=== PATIENT | female | born 1960 | race Hispanic/Latino ===

== ENCOUNTER 2016-11-12 04:27 | Inpatient (IN) | payer MEDICARE ==
[2016-11-12] MEDS ORDERED: LASIX IV ONE (04:35)
[2016-11-12] MEDS ORDERED: DUONEB 0.5 MG-3 MG/3 ML SOLN IH ONE (04:35)
[2016-11-12] MEDS ORDERED: BABY ASPIRIN PO ONE (04:38)
--- NOTE | 2016-11-12 04:38 | Emergency Department Report ---
HPI - General Time Seen by Provider: 11/12/16 04:27 - HPI HPI: The patient is a 55-year-old female who presents for evaluation of dyspnea. The patient has a history of COPD and CHF. The patient reports constant and severe dyspnea for the past one day, exacerbated with exertion, worsened late tonight. The patient deneis fever, chest pain, syncope, hemoptysis, vomiting, unilateral leg swelling, chills, night sweats. ED Past Medical Hx - Past Medical History Hx Hypertension: Yes (Diastolic HF ) Hx Heart Attack/AMI: No Hx Congestive Heart Failure: Yes Hx Diabetes: No Hx Deep Vein Thrombosis: (Unk) Hx Pulmonary Embolism: No Hx Renal Disease: Yes (Acute Renal Failure Resolved; had to get HD for 3 wks) Hx Sickle Cell Disease: No Hx Kidney Stones: No Hx Psychiatric Treatment: Yes (bipolar d/o) Hx Asthma: No Hx COPD: Yes Hx Tuberculosis: No Hx HIV: No Additional medical history: Patient takes multiple psychiatric medication. She also presents with an empty bottle of Fioricet. Additionally she has bottle of methocarbamol and soma. HX of lung CA - Surgical History Hx Coronary Stent: No Hx Open Heart Surgery: No Hx Pacemaker: No Hx Internal Defibrillator: No Hx Cholecystectomy: No Hx Appendectomy: No Hx Breast Surgery: No Additional Surgical History: tonsillectomy - Social History Smoking Status: Former Smoker - Medications Home Medications: Home Medications Medication Instructions Recorded Confirmed Last Taken Type AtorvaSTATin [Lipitor] 40 mg PO QDAY 06/12/16 11/12/16 11/11/16 History Carvedilol [Coreg] 6.25 mg PO BID 11/12/16 11/12/16 Unknown History Clopidogrel [Plavix] 75 mg PO QDAY 11/12/16 11/12/16 Unknown History Cyclobenzaprine [Flexeril] 10 mg PO 4XD PRN 11/12/16 11/12/16 Unknown History Ipratropium/Albuterol Sulfate 1 spray IH QID 11/12/16 11/12/16 Unknown History [Combivent Respimat] QUEtiapine [SEROquel] 200 mg PO QPM 11/12/16 11/12/16 Unknown History metroNIDAZOLE [Flagyl] 500 mg PO TID 11/12/16 11/12/16 Unknown History predniSONE [Deltasone] 10 mg PO QDAY 11/12/16 11/12/16 Unknown History traMADol [Ultram] 50 mg PO TID PRN 11/12/16 11/12/16 Unknown History ED Review of Systems ROS: Stated complaint: MANUEL Other details as noted in HPI Constitutional: denies: fever ENT: denies: throat or neck pain Respiratory: reports shortness of breath Cardiovascular: denies: chest pain Endocrine: denies unexplained weight loss or gain Gastrointestinal: denies: abdominal pain, nausea Genitourinary: denies: dysuria Musculoskeletal: denies: leg swelling Skin: denies: rash Neurological: denies: headache Hematological/Lymphatic: denies: easy bleeding or easy bruising Psych: denies sadness or hopelessness Physical Exam - Physical Exam Physical Exam: General: well-nourished, well-developed Head: Normocephalic, atraumatic Eyes: normal sclera ENT: Mucous membranes are pink and moist Neck: trachea midline, neck supple, No neck stiffness, no cervical adenopathy Respiratory: Diminished breath sounds and wheezing present throughout lung lakhani, crackles present to bibasilar lung lakhani as well, costal retractions present, patient in mild respiratory distress Cardio: S1 and S2 present, no murmurs, rubs, gallops, capillary refill is brisk Abdomen: Normoactive bowel sounds, soft abdomen, no rigidity, no guarding or rebound tenderness Musc: No pitting edema Skin: No rash Neuro: no facial drooping, normal speech Psych: Normal affect ED Medical Decision Making - Lab Data Result diagrams: 11/12/16 04:44 11/12/16 04:44 - Medical Decision Making The patient was seen and examined by myself. The patient received IV Solu- Medrol, IV magnesium, and an albuterol breathing treatment be EMS prior to arrival. The patient is placed on a stained glass joiner and continuous pulse ox. On initial evaluation, the patient was found to be in mild respiratory distress. The patient is placed on BiPAP and administered a duoneb breathing treatment. Evaluation orders were placed. Multiple bedside assessments were performed to evaluate patient responsiveness to bipap. Lab results reveal elevated BNP 1700, hyperglycemia 200, leukocytosis, WBC 15, and elevated PCO2 on ABG. X-ray of the chest exhibits right lower pleural effusion and mild cardiomegaly. The patient is given IV Lasix for treatment of CHF exacerbation. The on-call hospitalist service was contacted. They agreed to admit the patient for further treatment and close monitoring. The ED admit order was placed. The patient was admitted in guarded condition. Critical Care Time: Yes Critical care time in (mins) excluding proc time.: 35 Critical care attestation.: Due to the critical nature of this patients presentation, which necessitated multiple bedside assessments, manipulation and supportive measures to prevent further life threatening deterioration, I would like to bill for a total of 35 minutes of critical care time. This was exclusive of any separately billable procedures. Critical Care Time: 35 ED Disposition Clinical Impression: Acute on chronic systolic CHF (congestive heart failure), Acute respiratory failure with hypercapnia, Acute hyperglycemia Disposition: OP ADMITTED IP TO THIS HOSP Is pt being admited?: Yes Does the pt Need Aspirin: Yes Condition: Critical Time of Disposition: 04:37
[2016-11-12 04:59] LABS: Basophils % (Auto) 0.6 % (0.0-1.8); Eosinophils % (Auto) 0.3 % (0.0-4.3); Mean Corpuscular HGB Conc 31 % (30-34); Mean Corpuscular Hemoglobin 27 pg (28-32); Mean Corpuscular Volume 87 fl (79-97); Platelet Count 285 K/mm3 (140-440); Red Blood Count 4.57 M/mm3 (3.65-5.03); Red Cell Distribution Width 17.5 % (13.2-15.2); White Blood Count 15.5 K/mm3 (4.5-11.0)
[2016-11-12 05:01] LABS: Hematocrit 39.6 % (30.3-42.9); Hemoglobin 12.2 gm/dl (10.1-14.3)
[2016-11-12 05:20] LABS: BUN/Creatinine Ratio 15.45; Potassium 3.6 mmol/L (3.6-5.0)
[2016-11-12 05:49] LABS: ISTAT Base Excess 3; ISTAT HCO3 28.1; ISTAT PCO2 49.5 (35-45); ISTAT PH 7.362 (7.35-7.45); ISTAT PO2 86 (80-105); ISTAT SO2 96; ISTAT TCO2 30
--- NOTE | 2016-11-12 07:35 | History and Physical Report ---
History of Present Illness Date of examination: 11/12/16 Date of admission: 11/12/16 Chief complaint: worsening shortness of breath for the last 2 days History of present illness: Very pleasant 55-year-old female patient with significant past medical history of diastolic congestive heart failure COPD home oxygen dependent , presented to the emergency room with worsening shortness of breath of 2 days' duration, mild cough productive of whitish sputum denies hemoptysis patient denies any chest pain, patient was noted to be hypoxemic and tachypneic and tachycardic in the emergency room, requiring BiPAP Initially patient refuses to be admitted and wanted to sign out AMA however after explaining patient's condition treatment and discharge plan patient obliged to stay in the hospital for further evaluation and management of her symptoms First set of cardiac enzymes negative, Chest x-ray consistent with right lower lobe pneumonia and segmental left lower lobe atelectasis Denies nausea vomiting or abdominal pain Denies headache dizziness or weakness or numbness Past History Past Medical History: CAD, GERD, heart failure (diastolic congestive heart failure), hypertension, hyperlipidemia Past Surgical History: PTCA Social history: lives with family, smoking, alcohol abuse (additional), full code. denies: prescription drug abuse, IV drug use Family history: hypertension Medications and Allergies Allergies Allergy/AdvReac Type Severity Reaction Status Date / Time No Known Allergies Allergy Verified 08/23/16 10:20 Home Medications Medication Instructions Recorded Confirmed Last Taken Type AtorvaSTATin [Lipitor] 40 mg PO QDAY 06/12/16 11/12/16 11/11/16 History Carvedilol [Coreg] 6.25 mg PO BID 11/12/16 11/12/16 Unknown History Clopidogrel [Plavix] 75 mg PO QDAY 11/12/16 11/12/16 Unknown History Cyclobenzaprine [Flexeril 10 MG 10 mg PO 4XD PRN 11/12/16 11/12/16 Unknown History TAB] Ipratropium/Albuterol Sulfate 1 spray IH QID 11/12/16 11/12/16 Unknown History [Combivent Respimat] QUEtiapine [SEROquel] 200 mg PO QPM 11/12/16 11/12/16 Unknown History traMADol [Ultram 50 MG tab] 50 mg PO TID PRN 11/12/16 11/12/16 Unknown History Azithromycin [Zithromax Z-GEORGIA] 0 mg PO DAILY #1 tab 11/13/16 Unknown Rx Nicotine [Habitrol] 14 mg TD DAILY #30 patch 11/13/16 Unknown Rx Prednisone [predniSONE 10 mg 10 mg PO .TAPER #1 tab.ds.pk 11/13/16 Unknown Rx (6-Day Pack, 21 Tabs)] oxyCODONE /ACETAMINOPHEN [Percocet 1 tab PO QHS PRN #7 tablet 11/13/16 Unknown Rx 5/325] Review of Systems Constitutional: no weight loss, no weight gain, no fever, no chills Ears, nose, mouth and throat: no nasal congestion, no nasal discharge Cardiovascular: shortness of breath, no chest pain Respiratory: shortness of breath, no cough with sputum, no hemoptysis Gastrointestinal: loss of appetite, no nausea, no vomiting Genitourinary Female: no pelvic pain, no dysuria Musculoskeletal: no myalgias, no arthritis Integumentary: no rash, no lesions Neurological: no paralysis, no weakness, no seizures, no syncope Psychiatric: no anxiety, no depression Endocrine: no cold intolerance, no heat intolerance, no polydipsia, no polyuria Hematologic/Lymphatic: no easy bruising, no easy bleeding Allergic/Immunologic: no urticaria, no allergic rhinitis Exam - Constitutional Vitals: Temp Pulse Resp BP Pulse Ox 81 18 142/90 100 11/12/16 05:53 11/12/16 06:07 11/12/16 04:35 11/12/16 06:07 General appearance: Present: mild distress, well-nourished - EENT Eyes: Present: PERRL, EOM intact - Neck Neck: Present: supple, normal ROM - Respiratory Respiratory effort: normal Respiratory: bilateral: diminished (right more than left), rales, wheezing, negative: rhonchi - Cardiovascular Rhythm: regular Heart Sounds: Present: S1 & S2 - Extremities Extremities: no ischemia, pulses intact, pulses symmetrical - Abdominal General gastrointestinal: Present: soft, non-tender, non-distended, normal bowel sounds - Integumentary Integumentary: Present: clear, warm - Musculoskeletal Musculoskeletal: strength equal bilaterally, generalized weakness - Psychiatric Psychiatric: appropriate mood/affect, cooperative - Neurologic Neurologic: CNII-XII intact, moves all extremities Results - Labs CBC & Chem 7: 11/13/16 05:21 11/13/16 13:23 Labs: Abnormal lab results 11/12/16 11/12/16 11/12/16 Range/Units 04:44 04:44 05:33 WBC 15.5 H (4.5-11.0) K/mm3 MCH 27 L (28-32) pg RDW 17.5 H (13.2-15.2) % Seg Neutrophils % 75.3 H (40.0-70.0) % Seg Neutrophils # 11.7 H (1.8-7.7) K/mm3 POC ABG pCO2 49.5 H (35-45) Sodium 162 H* (137-145) mmol/L Chloride 120.0 H (98-107) mmol/L Glucose 201 H (65-100) mg/dL NT-Pro-B Natriuret Pep 1717 H (0-900) pg/mL Assessment and Plan - Patient Problems (1) Acute respiratory failure with hypercapnia Current Visit: Yes Status: Acute Plan to address problem: Multifactorial , secondary to acute on chronic diastolic congestive heart failure, as well as acute exacerbation of COPD Continue supportive care, I tried to O2 sats more than 90% BiPAP as needed, patient already has home oxygen (2) Acute on chronic diastolic CHF (congestive heart failure) Current Visit: No Status: Acute Plan to address problem: Gentle diuresis, oxygen, input-output monitoring Cardiology evaluation if needed Patient had severe systolic congestive heart failure in 2013 with ejection fraction of 15-20% in the records However in June 2016 echocardiogram revealed ejection fraction of 55-60% Consider cardiology evaluation if needed (3) Acute exacerbation of COPD with asthma Current Visit: Yes Status: Acute Plan to address problem: Oxygen, nebulizers, IV steroids, IV antibiotics, inhalation steroids and supportive care (4) Leukocytosis Current Visit: No Status: Acute Plan to address problem: Due to sepsis secondary to pneumonia Closely monitor (5) Right lower lobe pneumonia Current Visit: Yes Status: Acute Qualifiers: Pneumonia type: due to Pneumococcus Qualified Code(s): J13 - Pneumonia due to Streptococcus pneumoniae Plan to address problem: Possible community-acquired pneumonia Manage with Rocephin and Zithromax, blood cultures, supportive care for (6) DVT prophylaxis Current Visit: No Status: Acute Plan to address problem: Acute prophylaxis with Lovenox --DC planning to case management Closely monitor the patient and adjust management as needed Possible discharge in 1-2 days if stable
--- NOTE | 2016-11-12 07:56 | Admit Criteria Form ---
Admission Criteria Documentation: HEART FAILURE: COMMON COMPLICATIONS Clinical Indications for Inpatient Care (Place 'X' for any and all applicable criteria): Ongoing inpatient care may be indicated for heart failure with ANY ONE of the following (1)(2)(3)(4)(5): [ ]I. Ongoing need for care for primary condition requiring frequent therapy adjustments because of changes in cardiac function (eg, drug dosage changes for drugs that are renally metabolized) [ ]II. New-onset heart failure [ ]III. Heart failure with decreased urine output not responsive to attempts to optimize volume status [ ]IV. Acute cardiac ischemia causing or associated with failure [ X]V. Complications of heart failure, including ANY ONE of the following: [ ]a) Pericardial effusion [ ]b) Symptomatic pleural effusion [ ]c) O2 saturation <90% or PO2 < 60 mm Hg (8.0 kPa) on room air or require baseline supplemental O2 [ ]d) Tachypnea [X ]e) Dyspnea [ ]f) Syncope [ ]g) Change in mental status [ ]h) Acute renal insufficiency that is severe (reduction of more than 50% in estimated glomerular filtration rate from baseline) or progressive reduction of more than 25% in estimated glomerular filtration rate from baseline, with creatinine continuing to rise) [ ]i) Hemodynamic instability [ ]j) Anasarca [X ]k) Clinically significant metabolic abnormalities due to heart failure (eg, new-onset metabolic acidosis) Extended stay beyond goal length of stay for primary condition may be needed until ALL of the following are present(1)(3): [ ]a) Stable and effective diuretic regimen established (or patient on stable dialysis regimen if in chronic renal failure) [ ]b) Breathing comfortably at rest [ ]c) Saturation of arterial oxygen greater than 90% or at acceptable baseline [ ]d) Pulmonary edema absent or improved [ ]e) Hemodynamic stability [ ]f) Volume status acceptable on oral medication [ ]g) Peripheral or sacral edema absent or improved [ ]h) Renal function stable and manageable at a lower level of care [ ]i) Complications (eg, pleural effusion) resolved or manageable at a lower level of care [ ]j) Patient or caregiver has received written discharge instructions or educational material addressing activity level, diet, discharge medications, follow-up appointment, weight monitoring, and what to do if symptoms worsen The original [employer] content created by [employer] has been revised. The portions of the content which have been revised are identified through the use of italic text or in bold, and [facility] has neither reviewed nor approved the modified material.All other unmodified content is copyright [facility]. Please see references footnoted in the original [facility] edition 2016 Admission Criteria Met: Yes
[2016-11-12] MEDS ORDERED: PERCOCET 5/325 PO PRN (07:58)
[2016-11-12] MEDS ORDERED: AMBIEN PO PRN (07:58)
[2016-11-12] MEDS: MORPHINE IV PRN ×3 (08:00→21:00)
--- NOTE | 2016-11-12 09:18 | XRay Report ---
Single view chest: Compared to 07/28/16. History: Dyspnea. Findings: Cardiomegaly. Trachea is midline. Ill-defined linear densities in the right lower lobe. Normal CP angles. Impression: Right lower lobe pneumonia/segmental atelectasis.
[2016-11-12] MEDS ORDERED: PERCOCET 5/325 ONE (09:30)
[2016-11-12] MEDS: DUONEB 0.5 MG-3 MG/3 ML SOLN IH SCH ×3 (09:58→21:08)
[2016-11-12] MEDS: LOVENOX SUB-Q SCH (11:07)
[2016-11-12] MEDS: LASIX IV SCH (11:07)
[2016-11-12] MEDS: PLAVIX PO SCH (11:08)
[2016-11-12] MEDS: COREG PO SCH ×2 (11:08→21:00)
[2016-11-12] MEDS: ULTRAM PO PRN (11:13)
[2016-11-12] MEDS: ZITHROMAX 500 MG in NACL 0.9% 250ML 250 ML IV SCH (12:55)
[2016-11-13] MEDS: DUONEB 0.5 MG-3 MG/3 ML SOLN IH SCH ×3 (03:17→17:59)
[2016-11-13 06:05] LABS: Basophils % (Auto) 0.2 % (0.0-1.8); Eosinophils % (Auto) 0.1 % (0.0-4.3); Hematocrit 37.7 % (30.3-42.9); Hemoglobin 11.8 gm/dl (10.1-14.3); Mean Corpuscular HGB Conc 31 % (30-34); Mean Corpuscular Hemoglobin 27 pg (28-32); Mean Corpuscular Volume 85 fl (79-97); Platelet Count 255 K/mm3 (140-440); Red Blood Count 4.43 M/mm3 (3.65-5.03); Red Cell Distribution Width 17.9 % (13.2-15.2); White Blood Count 10.8 K/mm3 (4.5-11.0)
[2016-11-13 06:06] LABS: BUN/Creatinine Ratio 18.75; Blood Urea Nitrogen 15 mg/dL (7-17); Calcium 9.3 mg/dL (8.4-10.2); Carbon Dioxide 28 mmol/L (22-30); Chloride 103.9 mmol/L (98-107); Glucose 96 mg/dL (65-100); Sodium 145 mmol/L (137-145)
[2016-11-13 06:26] LABS: Anion Gap 16 mmol/L
[2016-11-13 06:28] LABS: Potassium 2.9 mmol/L (3.6-5.0)
[2016-11-13] MEDS ORDERED: K-DUR PO ONE ×2 (06:34→10:00)
[2016-11-13] MEDS: MORPHINE IV PRN ×2 (06:53→14:07)
[2016-11-13 08:10] VITALS: BP 156/90
[2016-11-13] MEDS ORDERED: ROCEPHIN/NS 1 GM/50 ML 50 ML IV SCH (10:00)
[2016-11-13] MEDS: COREG PO SCH (10:55)
[2016-11-13] MEDS: LASIX IV SCH (10:56)
[2016-11-13] MEDS: LOVENOX SUB-Q SCH (10:56)
[2016-11-13] MEDS: PLAVIX PO SCH (10:56)
[2016-11-13] MEDS: ULTRAM PO PRN (11:08)
[2016-11-13] MEDS: ZITHROMAX 500 MG in NACL 0.9% 250ML 250 ML IV SCH (12:18)
--- NOTE | 2016-11-13 13:35 | Discharge Summary ---
Providers - Providers Date of Admission: 11/12/16 07:45 Date of discharge: 11/13/16 Attending physician: FLOR BURRIS Primary care physician: [facility] Hospitalization Reason for admission: worsening shortness of breath/acute respiratory failure Condition: Fair Pertinent studies: Chest x-ray; right lower lobe pneumonia segmental atelectasis Hospital course: Very pleasant 55-year-old female patient with significant past medical history of COPD home oxygen dependent chronic diastolic congestive heart failure hypertension dyslipidemia, was admitted through emergency room with hypoxic hypercapnic respiratory failure requiring BiPAP Initial workup is consistent with acute on chronic diastolic congestive heart failure and acute exacerbation of COPD, chest x-ray revealed right lower lobe pneumonia Patient was managed with IV antibiotics oxygen and nebulizers IV steroids inhalation steroids, patient's blood cultures are negative to date Patient has history of ongoing tobacco use, smoking cessation counseling done patient strongly advised nicotine patch Today she is comfortable in bed alert awake oriented 3 not in acute distress, vital signs stable physical examination done by me prior to discharge is unremarkable as detailed below, hypokalemia was corrected with replacement therapy Medical records reviewed, DC planning discussed with the patient and family members at the bedside as well as the nurse Smoking cessation counseling done advised nicotine patch, I spent 10 minutes counseling the patient Disposition: DISCHARGED TO HOME OR SELFCARE Time spent for discharge: 33min - Discharge Diagnoses (1) Acute respiratory failure with hypercapnia Status: Acute (2) Acute on chronic diastolic CHF (congestive heart failure) Status: Acute (3) Acute exacerbation of COPD with asthma Status: Acute (4) Leukocytosis Status: Acute Comment: secondary to steroid therapy, no fever, no signs of systemic infection. (5) Right lower lobe pneumonia Status: Acute Qualifiers: Pneumonia type: due to Pneumococcus Qualified Code(s): J13 - Pneumonia due to Streptococcus pneumoniae (6) Tobacco use Status: Acute Core Measure Documentation - Palliative Care Palliative Care/ Comfort Measures: Not Applicable - Core Measures Any of the following diagnoses?: none Exam - Constitutional Vitals: Temp Pulse Resp BP Pulse Ox 98 F 77 19 156/90 96 11/13/16 08:09 11/13/16 10:25 11/13/16 10:25 11/13/16 10:55 11/13/16 10:15 General appearance: Present: no acute distress, well-nourished - EENT Eyes: Present: PERRL, EOM intact - Neck Neck: Present: supple, normal ROM - Respiratory Respiratory effort: normal Respiratory: bilateral: diminished, negative: rales, rhonchi, wheezing - Cardiovascular Rhythm: regular Heart Sounds: Present: S1 & S2 - Extremities Extremities: no ischemia, pulses intact, pulses symmetrical Peripheral Pulses: within normal limits - Abdominal General gastrointestinal: Present: soft, non-tender, non-distended, normal bowel sounds - Integumentary Integumentary: Present: clear, warm - Musculoskeletal Musculoskeletal: strength equal bilaterally, generalized weakness - Psychiatric Psychiatric: appropriate mood/affect, cooperative - Neurologic Neurologic: CNII-XII intact, moves all extremities Plan Activity: no restrictions Diet: low salt Special Instructions: smoking cessation Additional Instructions: Continue home oxygen as needed. Smoking cessation counseling done advised nicotine patch Follow up with: PRIMARY CARE, [Primary Care Provider] - 3-5 Days Prescriptions: Azithromycin [Zithromax Z-GEORGIA] 0 mg PO DAILY #1 tab Nicotine [Habitrol] 14 mg TD DAILY #30 patch Prednisone [predniSONE 10 mg (6-Day Pack, 21 Tabs)] 10 mg PO .TAPER #1 tab.ds.pk oxyCODONE /ACETAMINOPHEN [Percocet 5/325] 1 tab PO QHS PRN #7 tablet PRN Reason: Pain
== END 2016-11-13 16:18 | disposition home or self-care (01) | DRG 291 ==
LOC: ED 04:27 → 3A 07:45
PROVIDERS: ADMIT Internal Medicine; ATTEND Internal Medicine
DX: I11.0 Hypertensive heart disease with heart failure (principal); J13 Pneumonia due to Streptococcus pneumoniae; J96.02 Acute respiratory failure with hypercapnia; J96.01 Acute respiratory failure with hypoxia; J44.1 Chronic obstructive pulmonary disease with (acute) exacerbation; J44.0 Chronic obstructive pulmonary disease with (acute) lower respiratory infection; I50.33 Acute on chronic diastolic (congestive) heart failure; J44.9 Chronic obstructive pulmonary disease, unspecified; F31.9 Bipolar disorder, unspecified; K21.9 Gastro-esophageal reflux disease without esophagitis; E78.5 Hyperlipidemia, unspecified; I25.10 Atherosclerotic heart disease of native coronary artery without angina pectoris; J45.909 Unspecified asthma, uncomplicated; E87.6 Hypokalemia; Z98.890 Other specified postprocedural states; Z79.899 Other long term (current) drug therapy; Z87.891 Personal history of nicotine dependence; Z99.81 Dependence on supplemental oxygen; Z82.49 Family history of ischemic heart disease and other diseases of the circulatory system; Z79.2 Long term (current) use of antibiotics; Z71.6 Tobacco abuse counseling
CPT/HCPCS: 36415; 71010; 80048; 82140; 82803; 83880; 84132; 84295; 85025; 87040; 93005; 93010; 94640; 94760; 99291; 99406; A9270-GY; J0456; J0696; J1650; J1940; J2270; J7050

== ENCOUNTER 2016-11-14 02:27 | Inpatient (IN) | payer MEDICARE ==
[2016-11-14] MEDS ORDERED: DUONEB 0.5 MG-3 MG/3 ML SOLN IH ONE ×2 (02:39→02:44)
[2016-11-14] MEDS ORDERED: MAGNESIUM SULFATE 2GM/50ML 50 ML IV ONE ×2 (02:41→02:44)
[2016-11-14] MEDS ORDERED: LASIX IV ONE (02:46)
[2016-11-14] MEDS ORDERED: BABY ASPIRIN PO ONE (02:47)
--- NOTE | 2016-11-14 02:47 | Emergency Department Report ---
HPI - General Chief Complaint: Dyspnea/Respdistress Time Seen by Provider: 11/14/16 02:31 - HPI HPI: The patient is a 55-year-old female with a significant history of COPD and CHF, presents for evaluation of dyspnea. The patient reports progressive dyspnea for the past 2 days, significantly worse in earlier tonight after smoking tobacco. She reports constant and severe dyspnea and wheezing for the past 4 hours, exacerbated with physical activity or exertion, and improved with sitting up and resting. The patient denies fever, neck pain, parasthesias, chest pain, hemoptysis, syncope, unilateral leg swelling, calf muscle pain, recent immobilization, or history of cancer. She also has experienced some mild nonproductive cough which she states is her normal baseline. ED Past Medical Hx - Past Medical History Hx Hypertension: Yes Hx Heart Attack/AMI: No Hx Congestive Heart Failure: Yes Hx Diabetes: No Hx Deep Vein Thrombosis: (Unk) Hx Pulmonary Embolism: No Hx Renal Disease: Yes (Acute Renal Failure Resolved; had to get HD for 3 wks) Hx Sickle Cell Disease: No Hx Kidney Stones: No Hx Psychiatric Treatment: Yes (bipolar d/o) Hx Asthma: No Hx COPD: Yes Hx Tuberculosis: No Hx HIV: No Additional medical history: Patient takes multiple psychiatric medication. She also presents with an empty bottle of Fioricet. Additionally she has bottle of methocarbamol and soma. HX of lung CA - Surgical History Hx Coronary Stent: No Hx Open Heart Surgery: No Hx Pacemaker: No Hx Internal Defibrillator: No Hx Cholecystectomy: No Hx Appendectomy: No Hx Breast Surgery: No Additional Surgical History: tonsillectomy - Social History Smoking Status: Current Every Day Smoker Substance Use Type: None - Medications Home Medications: Home Medications Medication Instructions Recorded Confirmed Last Taken Type AtorvaSTATin [Lipitor] 40 mg PO QDAY 06/12/16 11/12/16 11/11/16 History Carvedilol [Coreg] 6.25 mg PO BID 11/12/16 11/12/16 Unknown History Clopidogrel [Plavix] 75 mg PO QDAY 11/12/16 11/12/16 Unknown History Cyclobenzaprine [Flexeril 10 MG 10 mg PO 4XD PRN 11/12/16 11/12/16 Unknown History TAB] Ipratropium/Albuterol Sulfate 1 spray IH QID 11/12/16 11/12/16 Unknown History [Combivent Respimat] QUEtiapine [SEROquel] 200 mg PO QPM 11/12/16 11/12/16 Unknown History traMADol [Ultram 50 MG tab] 50 mg PO TID PRN 11/12/16 11/12/16 Unknown History Azithromycin [Zithromax Z-GEORGIA] 0 mg PO DAILY #1 tab 11/13/16 Unknown Rx Nicotine [Habitrol] 14 mg TD DAILY #30 patch 11/13/16 Unknown Rx Prednisone [predniSONE 10 mg 10 mg PO .TAPER #1 tab.ds.pk 11/13/16 Unknown Rx (6-Day Pack, 21 Tabs)] oxyCODONE /ACETAMINOPHEN [Percocet 1 tab PO QHS PRN #7 tablet 11/13/16 Unknown Rx 5/325] ED Review of Systems ROS: Stated complaint: MANUEL Other details as noted in HPI Physical Exam - Physical Exam Physical Exam: General: well-nourished, well-developed, no acute distress Head: Normocephalic, atraumatic Eyes: normal sclera ENT: Mucous membranes are pale and dry Neck: trachea midline, neck supple, No neck stiffness, no cervical adenopathy Respiratory: Diminished breath sounds and wheezing present throughout lung lakhani bilaterally, costal retractions present, mild respiratory distress, patient able to speak 2-3 word sentences Cardio: S1 and S2 present, no murmurs, rubs, gallops, capillary refill is delayed Abdomen: Normoactive bowel sounds, soft abdomen, no tenderness Musc: No pitting edema Skin: No rash Neuro: no facial drooping, normal speech Psych: Normal affect ED Medical Decision Making - Lab Data Result diagrams: 11/14/16 03:05 11/14/16 03:05 - Medical Decision Making The patient was seen and examined by myself. The patient is placed on a cardiac/vascular sonographer and continuous pulse ox. On initial evaluation, the patient was found to be in no distress. Evaluation orders were placed. EKG is negative for findings suggestive of acute cardiac infarct. The patient is given a duoneb breathing treatment, IV mag, and IV Solu-Medrol for txt of COPD. Chest x-ray exhibits cardiomegaly and mild central pulmonary vessel congestion, and otherwise is negative for focal consolidation, pleural effusions, pneumothorax, or other acute cardio pulmonary disease process. Lab results revealed elevated BNP 2600, elevated WBC of 14, and elevated PCO2 of 51, and otherwise are grossly not concerning. The patient is given IV Lasix for CHF. The patient is reexamined and found to remain with significant wheezing and increased work of breathing despite treatments. The on-call hospitalist service was contacted. They agreed to admit the patient for further treatment and close monitoring. The ED admit order was placed. The patient was admitted in guarded condition. Critical care attestation.: If time is entered above; I have spent that time in minutes in the direct care of this critically ill patient, excluding procedure time. ED Disposition Clinical Impression: Acute exacerbation of COPD with asthma Acute exacerbation of CHF (congestive heart failure) Qualifiers: Congestive heart failure type: systolic Qualified Code(s): I50.23 - Acute on chronic systolic (congestive) heart failure Disposition: OP ADMITTED IP TO THIS HOSP Is pt being admited?: Yes Does the pt Need Aspirin: Yes Condition: Serious Time of Disposition: 02:46
[2016-11-14 03:10] LABS: ISTAT Base Excess -1; ISTAT HCO3 25.6; ISTAT PCO2 51.9 (35-45); ISTAT PH 7.301 (7.35-7.45); ISTAT PO2 86 (80-105); ISTAT SO2 95; ISTAT TCO2 27
[2016-11-14 03:25] LABS: Basophils % (Auto) 0.3 % (0.0-1.8); Eosinophils % (Auto) 0.3 % (0.0-4.3); Mean Corpuscular HGB Conc 31 % (30-34); Mean Corpuscular Hemoglobin 27 pg (28-32); Mean Corpuscular Volume 87 fl (79-97); Platelet Count 249 K/mm3 (140-440); Red Blood Count 4.42 M/mm3 (3.65-5.03); Red Cell Distribution Width 17.9 % (13.2-15.2); White Blood Count 14.8 K/mm3 (4.5-11.0)
[2016-11-14 03:34] LABS: Hematocrit 38.3 % (30.3-42.9); Hemoglobin 11.7 gm/dl (10.1-14.3)
[2016-11-14 03:55] LABS: Blood Urea Nitrogen 22 mg/dL (7-17); Calcium 9.2 mg/dL (8.4-10.2); Carbon Dioxide 29 mmol/L (22-30); Chloride 100.4 mmol/L (98-107); Glucose 109 mg/dL (65-100); Sodium 143 mmol/L (137-145)
[2016-11-14 04:04] LABS: Anion Gap 18 mmol/L
--- NOTE | 2016-11-14 05:22 | History and Physical Report ---
History of Present Illness Date of examination: 11/14/16 History of present illness: 55-year-old woman with history of CHF, hypertension, hyperlipidemia, coronary artery disease, GERD, Crohn's , COPD comes emergency room with complaints of shortness of breath. She was just discharged from the hospital yesterday. She states she got home she was smoking, her shortness of breath return, this was not relieved with nebulizer treatment. EMS called, her oxygen levels in the 60s. She was brought to the emergency room for further evaluation. Patient states she's been having abdominal pain since all this at the diagnosis of her Crohn's disease, abdominal pain is on the left abdomen which she described as a twisting sensation, constant, intensity 7/10, no radiation and she can't cannot identify exacerbating factor, pain is relieved with tramadol which she takes at home Patient denies chest pain, palpitation, cough, hematochezia, dysuria, frequency , focal weakness, dysarthria, fever chills, polydipsia polyuria, hot or cold intolerance, easy bruisability, or rash or bleeding from mucosal membrane, rhinorrhea, epistaxis, earache, tinnitus, blurry vision, eye discharge, anxiety , depression. Other review of systems negative PAST SURGICAL HISTORY: None SOCIAL HISTORY: Smokes, denies alcohol, drugs FAMILY HISTORY: Hypertension Medications and Allergies Allergies Allergy/AdvReac Type Severity Reaction Status Date / Time No Known Allergies Allergy Verified 08/23/16 10:20 Home Medications Medication Instructions Recorded Confirmed Last Taken Type AtorvaSTATin [Lipitor] 40 mg PO QDAY 06/12/16 11/12/16 11/11/16 History Carvedilol [Coreg] 6.25 mg PO BID 11/12/16 11/12/16 Unknown History Clopidogrel [Plavix] 75 mg PO QDAY 11/12/16 11/12/16 Unknown History Cyclobenzaprine [Flexeril 10 MG 10 mg PO 4XD PRN 11/12/16 11/12/16 Unknown History TAB] Ipratropium/Albuterol Sulfate 1 spray IH QID 11/12/16 11/12/16 Unknown History [Combivent Respimat] QUEtiapine [SEROquel] 200 mg PO QPM 11/12/16 11/12/16 Unknown History traMADol [Ultram 50 MG tab] 50 mg PO TID PRN 11/12/16 11/12/16 Unknown History Azithromycin [Zithromax Z-GEORGIA] 0 mg PO DAILY #1 tab 11/13/16 Unknown Rx Nicotine [Habitrol] 14 mg TD DAILY #30 patch 11/13/16 Unknown Rx Prednisone [predniSONE 10 mg 10 mg PO .TAPER #1 tab.ds.pk 11/13/16 Unknown Rx (6-Day Pack, 21 Tabs)] oxyCODONE /ACETAMINOPHEN [Percocet 1 tab PO QHS PRN #7 tablet 11/13/16 Unknown Rx 5/325] Exam - Physical Exam Narrative exam: Gen. appearance: Patient lying in bed, no apparent distress HEENT: Normocephalic, atraumatic, pupils equally round and reactive to light, extraocular movement intact, and no sclericterus,. No JVD or thyromegaly or nodule,neck supple, no carotid bruit ,mucous membranes moist, no exudate or erythema Heart: S1, S2, regular rate and rhythm Lungs: Wheezing, decreased air entry breathing comfortable Abdomen: Positive bowel sounds, tender in the left abdomen, nondistended, no organomegaly Extremity: No edema, cyanosis, clubbing Skin: No rash, nodules, warm, dry Neuro: Oriented 3, cranial nerves II-12 intact, speech is fluent, motor and sensory intact - Constitutional Vitals: Temp Pulse Resp BP Pulse Ox 108 H 21 122/88 92 11/14/16 03:45 11/14/16 03:45 11/14/16 03:45 11/14/16 03:45 Results - Labs CBC & Chem 7: 11/14/16 03:05 11/14/16 03:05 Labs: Abnormal lab results 11/14/16 11/14/16 11/14/16 Range/Units 03:00 03:05 03:05 WBC 14.8 H (4.5-11.0) K/mm3 MCH 27 L (28-32) pg RDW 17.9 H (13.2-15.2) % [place] # 1.0 H (0.0-0.8) K/mm3 Seg Neutrophils % 74.9 H (40.0-70.0) % Seg Neutrophils # 11.1 H (1.8-7.7) K/mm3 POC ABG pH 7.301 L (7.35-7.45) POC ABG pCO2 51.9 H (35-45) BUN 22 H (7-17) mg/dL Glucose 109 H (65-100) mg/dL NT-Pro-B Natriuret Pep (0-900) pg/mL 11/14/16 Range/Units 03:05 WBC (4.5-11.0) K/mm3 MCH (28-32) pg RDW (13.2-15.2) % [place] # (0.0-0.8) K/mm3 Seg Neutrophils % (40.0-70.0) % Seg Neutrophils # (1.8-7.7) K/mm3 POC ABG pH (7.35-7.45) POC ABG pCO2 (35-45) BUN (7-17) mg/dL Glucose (65-100) mg/dL NT-Pro-B Natriuret Pep 2617 H (0-900) pg/mL - Imaging and Cardiology EKG: image reviewed Chest x-ray: image reviewed (NAD, READ BY ME) Assessment and Plan COPD exacerbation Abdominal pain Steroid-induced leukocytosis Crohn's disease Coronary artery disease Hypertension Hyperlipidemia GERD Admits medicine Start high-dose IV steroids, nebulizer treatments Check cardiac enzymes, abdominal CAT scan Continue appropriate outpatient medications: Start DVT prophylaxis
--- NOTE | 2016-11-14 06:45 | Admit Criteria Form ---
Admission Criteria Documentation: COPD Clinical Indications for Admission to Inpatient Care (Place 'X' for any and all applicable criteria): Admission is indicated for ANY ONE of the following (1)(2)(3): [X]I. Acute exacerbation by high-risk comorbidity (e.g., pneumonia, dysrhythmia, heart failure, pleural effusion, pneumothorax) or severe underlying COPD (e.g., steroid dependent) [X]II. Inpatient admission required rather than observation care (see Chronic Obstructive Pulmonary Disease: Observation Care) because of ANY ONE of the following: [X]a) New or pre-existing signs or symptoms of COPD (eg, dyspnea or Tachypnea at rest or with minimal activity) that persist despite outpatient and observation care treatment [ ]b) New-onset hypoxemia (room air SaO2 less than 90%, PO2 less than 60 mm Hg (8.0 kPa)) that persists despite outpatient and observation care treatment [ ]c) Worsening of pre-existing hypoxemia (eg, new or increased requirement for supplemental oxygen to maintain oxygenation at baseline level) that persists despite outpatient and observation care treatment, with oxygen treatment needs performable only in acute inpatient setting [X]d) Hypercarbia (PCO2 greater than 40 mm Hg (5.3 kPa))-induced respiratory acidosis (pH less than 7.35) that persists despite outpatient and observation care treatment []e) Supplemental oxygen or respiratory treatments for over 24 hours that are performable only in acute inpatient setting [ ]f) Chest tube placement with active evacuation (e.g., suction, drainage) (5) [ ]g) Other condition, treatment or monitoring requiring inpatient admission [ ]III. Planned invasive surgical or diagnostic procedures requiring acute- care hospitalization [ ]IV. Acute respiratory failure (e.g., uncompensated hypercarbia, severe hypoxemia) [ ]V. Severe comorbid condition (e.g., severe steroid myopathy, acute vertebral fracture) that has acutely worsened pulmonary function [ ]. Confusion state, lethargy, obtundation, stupor or coma Extended stay beyond goal length of stay may be needed for (31)(32): [ ]a ) Respiratory Failure. [ ]b) Severe or persisting hypoxemia or hypercarbia [ ]c) Severe or persistent dyspnea [ ]d) Comorbidities (e.g. chronic heart failure, atrial fibrillation with rapid response, pneumonia) [ ]e) Malnutrition The original [facility] content created by [facility] has been revised. The portions of the content which have been revised are identified through the use of italic text or in bold, and [facility] has neither reviewed nor approved the modified material. All other unmodified content is copyright [facility]. Please see references footnoted in the original [facility] edition 2016 Admission Criteria Met: Yes
--- NOTE | 2016-11-14 06:48 | Cat Scan Report ---
FINAL REPORT PROCEDURE: CT ABDOMEN PELVIS WO CON TECHNIQUE: Computerized axial tomography of the abdomen and pelvis was performed without intravenous contrast. This study is performed without intravascular contrast material and its sensitivity for abdominal and pelvic pathology, including neoplasms, inflammation, abscess, free fluid, thrombosis, arterial dissection and infarction, is reduced compared with a contrast enhanced study. HISTORY: ABD PAIN, CHRONS COMPARISON: No prior studies are available for comparison. FINDINGS: Visualized lower thorax: The heart is slightly enlarged. There is a small pericardial effusion. There are infiltrates at the lung bases.. Liver: Normal size and attenuation. Spleen: Normal size and attenuation. Gallbladder and biliary system: Normal. Pancreas: Normal. Adrenals: Normal. Kidneys: There are nonobstructing stones in the kidneys. There are no ureteral stones. There is no hydronephrosis.. GI tract: The appendix is normal. There is no bowel obstruction. There is moderate stool in portions of the colon. There is narrowing and thickening of the left side of the transverse colon suggesting focal acute colitis. There is no perforation or abscess. Nonobstructing mass is considered unlikely but followup is recommended.. Lymph nodes and mesentery: Normal. Vasculature: Normal. Bladder: Normal. Reproductive organs: The uterus is atrophic.. Peritoneum: There is no ascites, free air, abscess or adenopathy.. Musculoskeletal structures: No significant abnormality. Other: None. IMPRESSION: There are nonobstructing stones in the kidneys. There are no ureteral stones. There is no hydronephrosis.. The appendix is normal. There is moderate stool in portions of the colon. There is narrowing and thickening of the left side of the transverse colon suggesting focal acute colitis. There is no perforation or abscess. Nonobstructing mass is considered unlikely but followup is recommended.. There is no ascites, free air, abscess or adenopathy. The heart is slightly enlarged. There is a small pericardial effusion. There are infiltrates at the lung bases.. .
[2016-11-14] MEDS ORDERED: TYLENOL PO PRN (07:03)
[2016-11-14] MEDS ORDERED: ZOFRAN IV PRN (07:03)
[2016-11-14] MEDS ORDERED: DULCOLAX PR PRN (07:03)
[2016-11-14] MEDS ORDERED: MILK OF MAGNESIA PO PRN (07:03)
[2016-11-14 08:49] LABS: Creatine Kinase MB 5.4 ng/mL (0.0-4.0)
[2016-11-14 08:50] LABS: Creatine Kinase 39 units/L (30-135)
--- NOTE | 2016-11-14 09:14 | XRay Report ---
Single view chest: Compared to 11/12/16. Next History: Chest pain. Findings: Cardiomegaly. Trachea is midline. Pulmonary vascular congestion. Bibasilar atelectasis being more pronounced in the right side. No significant interval change. Impression: No significant interval change
[2016-11-14] MEDS ORDERED: LOVENOX SUB-Q SCH (10:00)
[2016-11-14] MEDS ORDERED: PERCOCET 5/325 ONE (10:20)
[2016-11-14] MEDS ORDERED: PERCOCET 5/325 PO PRN (10:21)
[2016-11-14] MEDS: LOVENOX SUB-Q SCH (10:27)
--- NOTE | 2016-11-14 12:18 | Progress Note ---
Assessment and Plan Assessment and plan: Admitted today: per Dr. tracy: "Patient is a 55-year-old woman with a history of CHF, hypertension, hyperlipidemia, coronary artery disease, GERD, Crohn's , COPD comes emergency room with complaints of shortness of breath. She was just discharged from the hospital yesterday. She states she got home she was smoking, her shortness of breath return, this was not relieved with nebulizer treatment. EMS called, her oxygen levels in the 60s. She was brought to the emergency room for further evaluation. Patient states she's been having abdominal pain since all this at the diagnosis of her Crohn's disease, abdominal pain is on the left abdomen which she described as a twisting sensation, constant, intensity 7/10, no radiation and she can't cannot identify exacerbating factor, pain is relieved with tramadol which she takes at home. Patient denies chest pain, palpitation, cough, hematochezia, dysuria, frequency, focal weakness, dysarthria, fever chills, polydipsia polyuria, hot or cold intolerance, easy bruisability, or rash or bleeding from mucosal membrane, rhinorrhea, epistaxis, earache, tinnitus , blurry vision, eye discharge, anxiety, depression. Other review of systems negative COPD exacerbation Abdominal pain Steroid-induced leukocytosis Crohn's disease Coronary artery disease Hypertension Hyperlipidemia GERD Admits medicine Start high-dose IV steroids, nebulizer treatments Check cardiac enzymes, abdominal CAT scan Continue appropriate outpatient medications: Start DVT prophylaxis" 11/14/2016 CT abdomen and pelvis without contrast: There are nonobstructing stones in the kidneys, there are no ureteral stones or hydronephrosis, appendix is normal, moderate stool in the portion of the colon, there is narrowing thickening and left-sided transverse colon suggestion focal acute colitis. There is no perforation or abscess. Nonobstructing mass is considered unlikely but follow-up is recommended. No ascites free air or abscess or adenopathy. The heart is slightly enlarged small pericardial effusion, there infiltrates at the lung bases. 11/14/2016 chest x-ray. Cardiomegaly, trachea midline. Pulmonary vascular congestion. Op atelectasis being more pronounced in the right side. No significant interval change. She was discharged 11/13/16 and came back because she had increased shortness of breath and her pulse ox was in the 60s (per pt) despite turning up her home O2 machine to 4 liters. She is asking for more pain medication Will consult GI for the colitis, down grade diet Counseling to stop smoking History Interval history: Patient seen and examined. Follow up on shortness breath which has improved. Overnight uneventful. No cp, n/v or severe headaches. Imaging, old records, testing, labs, nursing notes reviewed. She also complains of generalized abdominal pains due to her Crohn's disease and wants narcotics Hospitalist Physical - Physical exam Narrative exam: GEN: WDWN, NAD, AWAKE, ALERT, ORIENTATED 3 CVS: RRR, NORMAL S1S2 LUNGS/CHEST: Bilateral wheezing NORMAL CHEST EXPANSION B, adequate AIR ENTRY B ABD: SOFT NTND, GBS, NO REBOUND OR GUARDING EXT/SKIN: NO SIGNIFICANT EDEMA OR RASH MSK: FROM X 4 EXTREMITIES NEURO: CN 2-12 GROSSLY INTACT, NO FOCAL DEFICITS PSY: Anxious - Constitutional Vitals: Temp Pulse Resp BP Pulse Ox 98.2 F 73 16 134/90 99 11/14/16 07:32 11/14/16 07:32 11/14/16 07:32 11/14/16 07:32 11/14/16 07:32 Results - Labs CBC & Chem 7: 11/14/16 03:05 11/14/16 03:05 Labs: Laboratory Last Values WBC 14.8 K/mm3 (4.5-11.0) H 11/14/16 03:05 RBC 4.42 M/mm3 (3.65-5.03) 11/14/16 03:05 Hgb 11.7 gm/dl (10.1-14.3) 11/14/16 03:05 Hct 38.3 % (30.3-42.9) 11/14/16 03:05 MCV 87 fl (79-97) 11/14/16 03:05 MCH 27 pg (28-32) L 11/14/16 03:05 MCHC 31 % (30-34) 11/14/16 03:05 RDW 17.9 % (13.2-15.2) H 11/14/16 03:05 Plt Count 249 K/mm3 (140-440) 11/14/16 03:05 Lymph % (Auto) 17.7 % (13.4-35.0) 11/14/16 03:05 [place] % (Auto) 6.8 % (0.0-7.3) 11/14/16 03:05 Eos % (Auto) 0.3 % (0.0-4.3) 11/14/16 03:05 Baso % (Auto) 0.3 % (0.0-1.8) 11/14/16 03:05 Lymph # 2.6 K/mm3 (1.2-5.4) 11/14/16 03:05 [place] # 1.0 K/mm3 (0.0-0.8) H 11/14/16 03:05 Eos # 0.0 K/mm3 (0.0-0.4) 11/14/16 03:05 Baso # 0.0 K/mm3 (0.0-0.1) 11/14/16 03:05 Seg Neutrophils % 74.9 % (40.0-70.0) H 11/14/16 03:05 Seg Neutrophils # 11.1 K/mm3 (1.8-7.7) H 11/14/16 03:05 POC ABG pH 7.301 (7.35-7.45) L 11/14/16 03:00 POC ABG pCO2 51.9 (35-45) H 11/14/16 03:00 POC ABG pO2 86 (80-105) 11/14/16 03:00 POC ABG HCO3 25.6 11/14/16 03:00 POC ABG Total CO2 27 11/14/16 03:00 POC ABG O2 Sat 95 11/14/16 03:00 POC ABG Base Excess -1 11/14/16 03:00 FiO2 50 % 11/14/16 03:00 Sodium 143 mmol/L (137-145) 11/14/16 03:05 Potassium 4.0 mmol/L (3.6-5.0) 11/14/16 03:05 Chloride 100.4 mmol/L (98-107) 11/14/16 03:05 Carbon Dioxide 29 mmol/L (22-30) 11/14/16 03:05 Anion Gap 18 mmol/L 11/14/16 03:05 BUN 22 mg/dL (7-17) H 11/14/16 03:05 Creatinine 0.8 mg/dL (0.7-1.2) 11/14/16 03:05 Estimated GFR > 60 ml/min 11/14/16 03:05 BUN/Creatinine Ratio 27.50 % 11/14/16 03:05 Glucose 109 mg/dL (65-100) H 11/14/16 03:05 Calcium 9.2 mg/dL (8.4-10.2) 11/14/16 03:05 Total Creatine Kinase 39 units/L (30-135) 11/14/16 08:10 CK-MB (CK-2) 5.4 ng/mL (0.0-4.0) H 11/14/16 08:10 CK-MB (CK-2) Rel Index 13.8 (0-4) H 11/14/16 08:10 Troponin T < 0.010 ng/mL (0.00-0.029) 11/14/16 08:10 NT-Pro-B Natriuret Pep 2617 pg/mL (0-900) H 11/14/16 03:05 - Imaging and Cardiology Chest x-ray: report reviewed CT scan - abdomen: report reviewed CT scan - pelvis: report reviewed
[2016-11-14] MEDS: MORPHINE IV PRN ×3 (12:55→21:04)
[2016-11-14] MEDS: FLAGYL 500 MG/100 ML 100 ML IV SCH ×2 (14:12→21:05)
[2016-11-14] MEDS: LEVAQUIN 500MG/100ML 100 ML IV SCH (14:12)
[2016-11-14 14:18] LABS: Creatine Kinase MB 4.1 ng/mL (0.0-4.0)
[2016-11-14 14:19] LABS: Creatine Kinase 32 units/L (30-135)
[2016-11-14] MEDS ORDERED: ULTRAM PO PRN (15:14)
[2016-11-14] MEDS: DUONEB 0.5 MG-3 MG/3 ML SOLN IH SCH ×2 (16:23→20:38)
--- NOTE | 2016-11-14 16:28 | Gastroenterology Consultation ---
History of Present Illness - Reason for Consult Consult date: 11/14/16 colitis Requesting physician: SUKUMAR LOPEZ - History of Present Illness Ms Vidal is a 55 yo female with h/o COPD, CHF, and colitis who presents with worsening sob. Pt currently being treated for copd exacerbation. Pt reports chronic, daily abdominal pain since July which started during a prolonged hospitalization. She is followed by Dr Fernando with [facility]. I discussed the case with him to help obtain prior history and work-up. She developed brbpr several months ago, with colonoscopy performed (unknown extent or report for review), but pathology was available which showed inflammation/ ulcerations 2/2 to either ischemia, infectious, or IBD. Pt is scheduled for outpatient colonoscopy with Dr Fernando soon for further evaluation. She denies diarrhea or GI bleeding. Main complaint is left sided abdominal pain which is constant, and only relieved with pain meds. Past History Past Medical History: CAD, COPD, other (colitis) Social history: smoking Family history: no significant family history Medications and Allergies Allergies Allergy/AdvReac Type Severity Reaction Status Date / Time No Known Allergies Allergy Verified 08/23/16 10:20 Home Medications Medication Instructions Recorded Confirmed Last Taken Type AtorvaSTATin [Lipitor] 40 mg PO QDAY 06/12/16 11/14/16 11/11/16 History Carvedilol [Coreg] 6.25 mg PO BID 11/12/16 11/14/16 Unknown History Clopidogrel [Plavix] 75 mg PO QDAY 11/12/16 11/14/16 Unknown History Cyclobenzaprine [Flexeril 10 MG 10 mg PO 4XD PRN 11/12/16 11/14/16 Unknown History TAB] Ipratropium/Albuterol Sulfate 1 spray IH QID 11/12/16 11/14/16 Unknown History [Combivent Respimat] QUEtiapine [SEROquel] 200 mg PO QPM 11/12/16 11/14/16 Unknown History traMADol [Ultram 50 MG tab] 50 mg PO TID PRN 11/12/16 11/14/16 Unknown History Azithromycin [Zithromax Z-GEORGIA] 0 mg PO DAILY #1 tab 11/13/16 11/14/16 Unknown Rx Nicotine [Habitrol] 14 mg TD DAILY #30 patch 11/13/16 11/14/16 Unknown Rx Prednisone [predniSONE 10 mg 10 mg PO .TAPER #1 tab.ds.pk 11/13/16 11/14/16 Unknown Rx (6-Day Pack, 21 Tabs)] oxyCODONE /ACETAMINOPHEN [Percocet 1 tab PO QHS PRN #7 tablet 11/13/16 11/14/16 Unknown Rx 5/325] Active Meds: Active Medications Acetaminophen (Tylenol) 650 mg PO Q4H PRN PRN Reason: Pain MILD(1-3)/Fever >100.5/BRIZUELA Albuterol/Ipratropium (Duoneb 0.5 Mg-3 Mg/3 Ml Soln) 1 ampul IH QIDRT [facility] Last Admin: 11/14/16 16:23 Dose: 1 ampul Atorvastatin Calcium (Lipitor) 40 mg PO QDAY KELSI Bisacodyl (Dulcolax) 10 mg IN QDAY PRN PRN Reason: Constipation unrelieved by MOM Carvedilol (Coreg) 6.25 mg PO BID [facility] Clopidogrel Bisulfate (Plavix) 75 mg PO QDAY [facility] Enoxaparin Sodium (Lovenox) 40 mg SUB-Q QDAY@1000 KELSI Last Admin: 11/14/16 10:27 Dose: 40 mg Levofloxacin/Dextrose (Levaquin 500mg/100ml) 100 mls @ 100 mls/hr IV Q24HR [facility] PRN Reason: Protocol Last Admin: 11/14/16 14:12 Dose: 100 mls/hr Metronidazole (Flagyl 500 Mg/100 Ml) 100 mls @ 100 mls/hr IV Q8HR [facility] Last Admin: 11/14/16 14:12 Dose: 100 mls/hr Magnesium Hydroxide (Milk Of Magnesia) 30 ml PO Q4H PRN PRN Reason: Constipation Methylprednisolone Sodium Succinate (Solu-Medrol) 125 mg IV Q6H [facility] Last Admin: 11/14/16 14:11 Dose: 125 mg Morphine Sulfate (Morphine) 2 mg IV Q4H PRN PRN Reason: Pain , Severe (7-10) Last Admin: 11/14/16 12:55 Dose: 2 mg Nicotine (Habitrol) 14 mg TD DAILY [facility] Oxycodone/Acetaminophen (Percocet 5/325) 1 tab PO Q4H PRN PRN Reason: Pain, Moderate (4-6) Last Admin: 11/14/16 10:28 Dose: 1 tab Quetiapine Fumarate (Seroquel) 200 mg PO QPM KELSI Senna (Senokot) 17.2 mg PO QHS KELSI Tramadol HCl (Ultram) 50 mg PO TID PRN PRN Reason: Pain Review of Systems - Review of Systems All systems: negative Constitutional: weight loss Cardiovascular: shortness of breath Gastrointestinal: abdominal pain Musculoskeletal: muscle weakness Exam - Exam Narrative Exam: Gen: NAD, appears older than stated age Head: nc/at Neck: no JVD/LAD Eyes: anicteric, perrl, eomi Mouth: mmm, no oral lesions Chest: no deformities or tenderness CV: RRR, no murmurs Lungs: + wheezing, non labored Abd: soft, + left sided ttp, nd, +bs Ext: no c/c/e Neuro: grossly normal, oriented x 3 Psych: appropriate mood and affect - Constitutional Vital Signs: Temp Pulse Resp BP Pulse Ox 97.6 F 69 18 171/90 97 11/14/16 13:41 11/14/16 13:41 11/14/16 13:41 11/14/16 13:41 11/14/16 13:41 - Labs CBC & Chem 7: 11/14/16 03:05 11/14/16 03:05 Lab Results: Laboratory Results - last 24 hr 11/14/16 11/14/16 08:10 13:31 Total Creatine Kinase 39 32 CK-MB (CK-2) 5.4 H 4.1 H CK-MB (CK-2) Rel Index 13.8 H 12.8 H Troponin T < 0.010 < 0.010 - Imaging X-ray: report reviewed CT Scan: report reviewed Assessment and Plan colitis - CT scan showed findings suggestive of colitis in the distal transverse colon. Pt's prior history regarding colitis was obtained from pt's GI physician. She reportedly had brbpr during a hospitalization which led to a colonoscopy showing colitis. Biopsies were non-specific showing inflammatory changes which could be seen with ischemia, infection, or IBD. Recommend checking stool studies. Unclear if pt has crohn's disease. She is planned to have outpatient colonoscopy with her GI physician. No further recommendations from GI at this time, please call as needed.
[2016-11-14] MEDS ORDERED: NON-FORMULARY (Ipratropium/Albuterol Sulfate [Combivent Respimat] 1 SPRAY) IH SCH (18:00)
[2016-11-14] MEDS: SENOKOT PO SCH (21:05)
[2016-11-14] MEDS: COREG PO SCH (21:05)
[2016-11-15] MEDS: FLAGYL 500 MG/100 ML 100 ML IV SCH ×3 (06:41→21:11)
[2016-11-15] MEDS: DUONEB 0.5 MG-3 MG/3 ML SOLN IH SCH ×4 (07:50→21:16)
[2016-11-15] MEDS: MORPHINE IV PRN ×3 (08:01→16:54)
[2016-11-15] MEDS: LOVENOX SUB-Q SCH (09:27)
[2016-11-15] MEDS: HABITROL TD SCH (09:27)
[2016-11-15] MEDS: LEVAQUIN 500MG/100ML 100 ML IV SCH (09:27)
[2016-11-15] MEDS: PLAVIX PO SCH (09:28)
[2016-11-15] MEDS: COREG PO SCH ×2 (09:28→21:11)
--- NOTE | 2016-11-15 09:50 | Discharge Summary ---
Providers - Providers Date of Admission: 11/14/16 05:00 Date of discharge: 11/15/16 Attending physician: HEAVEN VELEZ MD 11/14/16 12:18 Consult to Physician [CONS] Routine Consulting Provider: NATY PRASAD Reason For Exam: colitis, pt known to you Place consult to:: Meek BARROW Notified:: office Phone number called:: Was contact made?: Yes If yes, spoke with:: sharita Time called:: 12:40 Primary care physician: [facility] Hospitalization Reason for admission: shortness of breath Condition: Stable Hospital course: Patient is a 55-year-old woman with a history of CHF, hypertension, hyperlipidemia, coronary artery disease, GERD, Crohn's , COPD comes emergency room with complaints of shortness of breath. She was just discharged from the hospital day before admission. She states she got home she was smoking, her shortness of breath return, this was not relieved with nebulizer treatment. EMS called, her oxygen levels in the 60s. She was brought to the emergency room for further evaluation. Patient states she's been having abdominal pain since all this at the diagnosis of her Crohn's disease, abdominal pain is on the left abdomen which she described as a twisting sensation, constant, intensity 7/10, no radiation and she can't cannot identify exacerbating factor, pain is relieved with tramadol which she takes at home. Patient denies chest pain, palpitation, cough, hematochezia, dysuria, frequency, focal weakness, dysarthria, fever chills, polydipsia polyuria, hot or cold intolerance, easy bruisability, or rash or bleeding from mucosal membrane, rhinorrhea, epistaxis, earache, tinnitus, blurry vision, eye discharge, anxiety, depression. Other review of systems negative. Symptoms improved during hospitalization I did use the fact that she has not smoked while in the hospital to educate her on smoking cessation. She is down to 2 L nasal cannula she's ambulates and she is back to her baseline. She will require [id number] oxygen with a concentrated back off to 4 L. This has been arranged by case management. She understands the effect that tobacco place on her respiratory system of verbalized understanding. Support services has been provided to her for help with some tobacco cessation. Discharge diagnosis COPD exacerbation Abdominal pain Steroid-induced leukocytosis Tobacco abuse Crohn's disease Coronary artery disease Hypertension Hyperlipidemia GERD Disposition: DC/TX HOME UNDER HOME HEALTH Time spent for discharge: 35 mins Core Measure Documentation - Palliative Care Palliative Care/ Comfort Measures: Not Applicable - Core Measures Any of the following diagnoses?: none - VTE Discharge Requirements Deep Vein Thrombosis/Pulmonary Embolism Present on Admission: No Exam - Physical Exam Narrative exam: VITAL SIGNS: Reviewed. GENERAL: The patient appeared well nourished and normally developed. Vital signs as documented. HEAD: No signs of head trauma. EYES: Pupils are equal. Extraocular motions intact. EARS: Hearing grossly intact. MOUTH: Oropharynx is normal. NECK: No adenopathy, no JVD. CHEST: Chest with expiratory wheezes at the bases much improved compared to yesterday. CARDIAC: Regular rate and rhythm. S1 and S2, without murmurs, gallops, or rubs. VASCULAR: No Edema. Peripheral pulses normal and equal in all extremities. ABDOMEN: Soft, without detectable tenderness. No sign of distention. No rebound or guarding, and no masses palpated. Bowel Sounds normal. MUSCULOSKELETAL: Good range of motion of all major joints. Extremities without clubbing, cyanosis or edema. NEUROLOGIC EXAM: Alert and oriented x 3. No focal sensory or strength deficits. Speech normal. Follows commands. PSYCHIATRIC: Mood normal. SKIN: No rash or lesions. - Constitutional Vitals: Temp Pulse Resp BP Pulse Ox 97.8 F 74 18 142/83 98 11/15/16 08:00 11/15/16 08:00 11/15/16 08:00 11/15/16 08:00 11/15/16 08:00 Plan Activity: advance as tolerated, fall precautions Diet: low fat, low cholesterol Special Instructions: record daily weights, record daily BP diary, smoking cessation Durable Medical Equipment Needed Upon Discharge: Oxygen (2l pm round the clock) Additional Instructions: follow with personal furniture packer in 3-5 days Follow up with: PRIMARY CARE, [Primary Care Provider] - 3-5 Days Prescriptions: Prednisone [predniSONE 10 mg (6-Day Pack, 21 Tabs)] 10 mg PO .TAPER #1 tab.ds.pk
[2016-11-15 10:18] LABS: Hematocrit 40.2 % (30.3-42.9); Hemoglobin 12.5 gm/dl (10.1-14.3); Mean Corpuscular HGB Conc 31 % (30-34); Mean Corpuscular Hemoglobin 27 pg (28-32); Mean Corpuscular Volume 85 fl (79-97); Platelet Count 249 K/mm3 (140-440); Red Blood Count 4.71 M/mm3 (3.65-5.03); Red Cell Distribution Width 17.4 % (13.2-15.2); White Blood Count 8.8 K/mm3 (4.5-11.0)
[2016-11-15 10:37] LABS: Anion Gap 20 mmol/L; BUN/Creatinine Ratio 36.66; Blood Urea Nitrogen 22 mg/dL (7-17); Carbon Dioxide 27 mmol/L (22-30); Chloride 101.2 mmol/L (98-107); Glucose 151 mg/dL (65-100); Sodium 144 mmol/L (137-145)
[2016-11-15 10:52] LABS: Anisocytosis 1+; Basophils % (Manual) 0 % (0.0-1.8); Blastocytes % (Manual) 0 %; Eosinophils % (Manual) 0 % (0.0-4.3); Ovalocytes 1+
[2016-11-15 10:53] LABS: Diff Status Complete; Elliptocytes Rare; Helmet Cells Rare; Tear Drop Cells Rare
[2016-11-15] MEDS: SENOKOT PO SCH (21:11)
--- NOTE | 2016-11-15 21:57 | Progress Note ---
Assessment and Plan Assessment and plan: Patient is a 55-year-old woman with a history of CHF, hypertension, hyperlipidemia, coronary artery disease, GERD, Crohn's , COPD comes emergency room with complaints of shortness of breath. She was just discharged from the hospital yesterday. She states she got home she was smoking, her shortness of breath return, this was not relieved with nebulizer treatment. EMS called, her oxygen levels in the 60s. She was brought to the emergency room for further evaluation. Patient states she's been having abdominal pain since all this at the diagnosis of her Crohn's disease, abdominal pain is on the left abdomen which she described as a twisting sensation, constant, intensity 7/10, no radiation and she can't cannot identify exacerbating factor, pain is relieved with tramadol which she takes at home. Patient denies chest pain, palpitation, cough, hematochezia, dysuria, frequency, focal weakness, dysarthria, fever chills, polydipsia polyuria, hot or cold intolerance, easy bruisability, or rash or bleeding from mucosal membrane, rhinorrhea, epistaxis, earache, tinnitus , blurry vision, eye discharge, anxiety, depression. Other review of systems negative COPD exacerbation Abdominal pain Steroid-induced leukocytosis Crohn's disease Coronary artery disease Hypertension Hyperlipidemia GERD PLAN * Patient improved will continue current treatment and taper steroids. * Discussed in detail smoking cessation and she verbalized understanding. 15 mins spent on counselling * Outpatient follow up repeat ct abdomen to evaluate Thickening noted on CT colon * DVT/GI porphy * Discharge planned awaiting home health O2 set up History Interval history: Patient seen and examined. Follow up on shortness breath. patient reports improvement. she is concerned about her home oxygen and will like a concentrator. Overnight uneventful. No cp, n/v or severe headaches. Hospitalist Physical - Physical exam Narrative exam: GEN: WDWN, NAD, AWAKE, ALERT, ORIENTATED 3 CVS: RRR, NORMAL S1S2 LUNGS/CHEST: Bilateral wheezing on at the bases and on expansion otherwise normal chest expansion with good air flow ABD: SOFT NTND, GBS, NO REBOUND OR GUARDING EXT/SKIN: NO SIGNIFICANT EDEMA OR RASH MSK: FROM X 4 EXTREMITIES NEURO: CN 2-12 GROSSLY INTACT, NO FOCAL DEFICITS PSY: normal mood and affect - Constitutional Vitals: Temp Pulse Resp BP Pulse Ox 98.4 F 76 18 126/68 96 11/15/16 17:47 11/15/16 21:11 11/15/16 20:18 11/15/16 21:11 11/15/16 21:18 Results - Labs CBC & Chem 7: 11/15/16 08:55 11/15/16 08:55 Labs: Laboratory Last Values WBC 8.8 K/mm3 (4.5-11.0) 11/15/16 08:55 RBC 4.71 M/mm3 (3.65-5.03) 11/15/16 08:55 Hgb 12.5 gm/dl (10.1-14.3) 11/15/16 08:55 Hct 40.2 % (30.3-42.9) 11/15/16 08:55 MCV 85 fl (79-97) 11/15/16 08:55 MCH 27 pg (28-32) L 11/15/16 08:55 MCHC 31 % (30-34) 11/15/16 08:55 RDW 17.4 % (13.2-15.2) H 11/15/16 08:55 Plt Count 249 K/mm3 (140-440) 11/15/16 08:55 Lymph % (Auto) 17.7 % (13.4-35.0) 11/14/16 03:05 Patrick % (Auto) 6.8 % (0.0-7.3) 11/14/16 03:05 Eos % (Auto) 0.3 % (0.0-4.3) 11/14/16 03:05 Baso % (Auto) 0.3 % (0.0-1.8) 11/14/16 03:05 Lymph # 2.6 K/mm3 (1.2-5.4) 11/14/16 03:05 Patrick # 1.0 K/mm3 (0.0-0.8) H 11/14/16 03:05 Eos # 0.0 K/mm3 (0.0-0.4) 11/14/16 03:05 Baso # 0.0 K/mm3 (0.0-0.1) 11/14/16 03:05 Add Manual Diff Complete 11/15/16 08:55 Total Counted 100 11/15/16 08:55 Seg Neutrophils % [employer] 11/15/16 08:55 Seg Neuts % (Manual) 93.0 % (40.0-70.0) H 11/15/16 08:55 Band Neutrophils % 0 % 11/15/16 08:55 Lymphocytes % (Manual) 6.0 % (13.4-35.0) L 11/15/16 08:55 Reactive Lymphs % (Man) 0 % 11/15/16 08:55 Monocytes % (Manual) 0 % (0.0-7.3) 11/15/16 08:55 Eosinophils % (Manual) 0 % (0.0-4.3) 11/15/16 08:55 Basophils % (Manual) 0 % (0.0-1.8) 11/15/16 08:55 Metamyelocytes % 1.0 % 11/15/16 08:55 Myelocytes % 0 % 11/15/16 08:55 Promyelocytes % 0 % 11/15/16 08:55 Blast Cells % 0 % 11/15/16 08:55 Nucleated RBC % Not Reportable 11/15/16 08:55 Seg Neutrophils # 11.1 K/mm3 (1.8-7.7) H 11/14/16 03:05 Seg Neutrophils # Man 8.2 K/mm3 (1.8-7.7) H 11/15/16 08:55 Band Neutrophils # 0.0 K/mm3 11/15/16 08:55 Lymphocytes # (Manual) 0.5 K/mm3 (1.2-5.4) L 11/15/16 08:55 Abs React Lymphs (Man) 0.0 K/mm3 11/15/16 08:55 Monocytes # (Manual) 0.0 K/mm3 (0.0-0.8) 11/15/16 08:55 Eosinophils # (Manual) 0.0 K/mm3 (0.0-0.4) 11/15/16 08:55 Basophils # (Manual) 0.0 K/mm3 (0.0-0.1) 11/15/16 08:55 Metamyelocytes # 0.1 K/mm3 11/15/16 08:55 Myelocytes # 0.0 K/mm3 11/15/16 08:55 Promyelocytes # 0.0 K/mm3 11/15/16 08:55 Blast Cells # 0.0 K/mm3 11/15/16 08:55 WBC Morphology Not Reportable 11/15/16 08:55 Hypersegmented Neuts Not Reportable 11/15/16 08:55 Hyposegmented Neuts Not Reportable 11/15/16 08:55 Hypogranular Neuts Not Reportable 11/15/16 08:55 Smudge Cells Not Reportable 11/15/16 08:55 Toxic Granulation Not Reportable 11/15/16 08:55 Toxic Vacuolation Not Reportable 11/15/16 08:55 Dohle Bodies Not Reportable 11/15/16 08:55 Pelger-Huet Anomaly Not Reportable 11/15/16 08:55 Candie Rods Not Reportable 11/15/16 08:55 Platelet Estimate Appears normal 11/15/16 08:55 Clumped Platelets Not Reportable 11/15/16 08:55 Plt Clumps, EDTA Not Reportable 11/15/16 08:55 Large Platelets Not Reportable 11/15/16 08:55 Giant Platelets Not Reportable 11/15/16 08:55 Platelet Satelliting Not Reportable 11/15/16 08:55 Plt Morphology Comment Not Reportable 11/15/16 08:55 RBC Morphology Not Reportable 11/15/16 08:55 Dimorphic RBCs Not Reportable 11/15/16 08:55 Polychromasia Not Reportable 11/15/16 08:55 Hypochromasia Not Reportable 11/15/16 08:55 Poikilocytosis Not Reportable 11/15/16 08:55 Anisocytosis 1+ 11/15/16 08:55 Microcytosis Not Reportable 11/15/16 08:55 Macrocytosis Not Reportable 11/15/16 08:55 Spherocytes Not Reportable 11/15/16 08:55 Pappenheimer Bodies Not Reportable 11/15/16 08:55 Sickle Cells Not Reportable 11/15/16 08:55 Target Cells Not Reportable 11/15/16 08:55 Tear Drop Cells Rare 11/15/16 08:55 Ovalocytes 1+ 11/15/16 08:55 Helmet Cells Rare 11/15/16 08:55 [place] Bodies Not Reportable 11/15/16 08:55 Lowes Rings Not Reportable 11/15/16 08:55 Jenn Cells Not Reportable 11/15/16 08:55 Bite Cells Not Reportable 11/15/16 08:55 Crenated Cell Not Reportable 11/15/16 08:55 Elliptocytes Rare 11/15/16 08:55 Acanthocytes (Spur) Not Reportable 11/15/16 08:55 Rouleaux Not Reportable 11/15/16 08:55 Hemoglobin C Crystals Not Reportable 11/15/16 08:55 Schistocytes Not Reportable 11/15/16 08:55 Malaria parasites Not Reportable 11/15/16 08:55 Win Bodies Not Reportable 11/15/16 08:55 Hem Pathologist Commnt No 11/15/16 08:55 POC ABG pH 7.301 (7.35-7.45) L 11/14/16 03:00 POC ABG pCO2 51.9 (35-45) H 11/14/16 03:00 POC ABG pO2 86 (80-105) 11/14/16 03:00 POC ABG HCO3 25.6 11/14/16 03:00 POC ABG Total CO2 27 11/14/16 03:00 POC ABG O2 Sat 95 11/14/16 03:00 POC ABG Base Excess -1 11/14/16 03:00 FiO2 50 % 11/14/16 03:00 Sodium 144 mmol/L (137-145) 11/15/16 08:55 Potassium 4.0 mmol/L (3.6-5.0) 11/15/16 08:55 Chloride 101.2 mmol/L (98-107) 11/15/16 08:55 Carbon Dioxide 27 mmol/L (22-30) 11/15/16 08:55 Anion Gap 20 mmol/L 11/15/16 08:55 BUN 22 mg/dL (7-17) H 11/15/16 08:55 Creatinine 0.6 mg/dL (0.7-1.2) L 11/15/16 08:55 Estimated GFR > 60 ml/min 11/15/16 08:55 BUN/Creatinine Ratio 36.66 % 11/15/16 08:55 Glucose 151 mg/dL (65-100) H 11/15/16 08:55 Calcium 10.0 mg/dL (8.4-10.2) 11/15/16 08:55 Total Creatine Kinase 32 units/L (30-135) 11/14/16 13:31 CK-MB (CK-2) 4.1 ng/mL (0.0-4.0) H 11/14/16 13:31 CK-MB (CK-2) Rel Index 12.8 (0-4) H 11/14/16 13:31 Troponin T < 0.010 ng/mL (0.00-0.029) 11/14/16 13:31 NT-Pro-B Natriuret Pep 2617 pg/mL (0-900) H 11/14/16 03:05 - Imaging and Cardiology Chest x-ray: image reviewed
[2016-11-16] MEDS: FLAGYL 500 MG/100 ML 100 ML IV SCH (05:32)
[2016-11-16] MEDS: MORPHINE IV PRN (08:22)
[2016-11-16] MEDS: DUONEB 0.5 MG-3 MG/3 ML SOLN IH SCH (09:59)
[2016-11-16] MEDS: COREG PO SCH (10:34)
[2016-11-16] MEDS: PLAVIX PO SCH (10:34)
[2016-11-16] MEDS: HABITROL TD SCH (10:35)
[2016-11-16] MEDS: LOVENOX SUB-Q SCH (10:35)
[2016-11-16 11:45] VITALS: BP 171/79
[2016-11-16] MEDS: LEVAQUIN 500MG/100ML 100 ML IV SCH (12:19)
== END 2016-11-16 12:03 | disposition home health service (06) | DRG 190 ==
LOC: ED 02:27 → 3A 05:00
PROVIDERS: ADMIT Internal Medicine; ATTEND Internal Medicine
DX: J44.1 Chronic obstructive pulmonary disease with (acute) exacerbation (principal); I50.23 Acute on chronic systolic (congestive) heart failure; K50.90 Crohn's disease, unspecified, without complications; J45.901 Unspecified asthma with (acute) exacerbation; I11.0 Hypertensive heart disease with heart failure; I50.9 Heart failure, unspecified; F31.9 Bipolar disorder, unspecified; F17.200 Nicotine dependence, unspecified, uncomplicated; E78.5 Hyperlipidemia, unspecified; I25.10 Atherosclerotic heart disease of native coronary artery without angina pectoris; K21.9 Gastro-esophageal reflux disease without esophagitis; T38.0X5A Adverse effect of glucocorticoids and synthetic analogues, initial encounter; D72.829 Elevated white blood cell count, unspecified; K52.9 Noninfective gastroenteritis and colitis, unspecified; Z98.890 Other specified postprocedural states; Z79.899 Other long term (current) drug therapy; Z79.2 Long term (current) use of antibiotics; Z82.49 Family history of ischemic heart disease and other diseases of the circulatory system; Y92.89 Other specified places as the place of occurrence of the external cause; Z71.6 Tobacco abuse counseling
CPT/HCPCS: 36415; 71010; 74176; 80048; 82550; 82553; 82803; 83880; 84484; 85007; 85025; 93005; 93010; 94640; 94760; 96365; 96372; 96375; 99406; A9270-GY; J1650; J1940; J1956; J2270; J2920; J2930; J3475